=== PATIENT | male | born 1985 | race African-American/Black ===

== ENCOUNTER 2019-03-11 20:12 | Inpatient (IN) ==
[2019-03-11] MEDS ORDERED: MORPHINE 4 MG/1 ML VIAL ONE (20:23)
[2019-03-11] MEDS ORDERED: ONDANSETRON 4 MG/2 ML VIAL ONE (20:23)
[2019-03-11] MEDS ORDERED: DIPH/TET/ACEL PERT BOOSTER VACCINE 0.5 ML VIAL IM ONE (20:24)
[2019-03-11] MEDS ORDERED: ONDANSETRON 4 MG/2 ML VIAL IV STA (20:28)
[2019-03-11] MEDS ORDERED: DIPHTHERIA/TETANUS ADULT VACCINE 0.5 ML SYRINGE IM ONE (20:28)
[2019-03-11] MEDS ORDERED: LACTATED RINGERS 1,000 ML IV STA (20:28)
[2019-03-11] MEDS ORDERED: MORPHINE 4 MG/1 ML VIAL IV STA (20:28)
[2019-03-11 20:39] LABS: Basophils % 0.2 % (0.0-0.8); Eosinophils # 0.1 10*3/uL (0.0-0.87); Eosinophils % 1.1 % (0.00-10.9); Hematocrit 46.8 VOL% (42.0-52.0); Hemoglobin 15.2 GM/DL (14.0-18.0); Lymphocytes # 3.1 10*3/uL (1.4-4.0); Lymphocytes % 57.4 % (21.2-54.2); Mean Corpuscular HGB Conc 32.5 GM/DL (32-36); Mean Corpuscular Volume 92.1 FL (87-102); Mean Platelet Volume 10.8 FL (9.6-12.0); Monocytes % 7.1 % (1.7-12.7); Neutrophils % 34.2 % (38.7-73.9); Platelet Count 171 T/CUMM (130-400); Red Blood Count 5.08 MC/CUMM (3.8-5.5); Red Cell Distribution Width 12.3 % (9.3-17.3); White Blood Count 5.4 T/CUMM (4-12)
[2019-03-11] MEDS ORDERED: propofoL 200 MG/20 ML VIAL IV STA (20:40)
[2019-03-11 20:48] LABS: PT Patient Result 10.6 SECS (9.6-12.2); Partial Thromboplastin Time 22.7 SECS (20.8-36.0)
[2019-03-11 20:59] LABS: Alanine Aminotransferase 16 U/L (16-61); Albumin 3.7 G/DL (3.4-5.0); Alkaline Phosphatase 81 U/L (45-117); Amylase 47 U/L (25-115); Aspartate Amino Transferase 15 U/L (0-37); Blood Urea Nitrogen 9 MG/DL (7-18); Calcium 8.6 MG/DL (8.5-10.1); Estimated Glom Filtration Rate 120 ML/MIN; Glucose 120 MG/DL (74-106); Osmolality,Calculated 282.1 MOS/KG (273-304); Total Protein 6.9 G/DL (6.4-8.3)
[2019-03-11 21:01] LABS: Atypical Lymphocytes 1+; Eosinophils 2 % (0-10); Lymphocytes 47 % (20-55); Platelet Estimate Adequate; Segmented Neutrophils 42 % (50-85); Total Cells Counted 100
[2019-03-11] MEDS ORDERED: SODIUM CHLORIDE 0.9% 1,000 ML IV STA (21:25)
[2019-03-11 21:28] LABS: Apearance,Urine CLEAR (Clear); Bilirubin,Urine Negative (Negative); Blood, Urine Negative (Negative); Glucose,Urine (UA) Negative (Negative); Hyaline Casts,Urine 1 /LPF (0-3); Ketones,Urine Negative (Negative); Mucus,Urine Occasional /LPF (Occasional); Nitrite,Urine Negative (Negative); Protein,Urine Negative; RBC,Urine 1 /HPF (0-4); Urine Color Straw (Yellow); Urine Specific Gravity 1.018 (1.001-1.035); Urine Urobilinogen < 2.0 EU/DL (0.2-1.0); WBC,Urine 1 /HPF (0-6)
[2019-03-11 21:31] LABS: Barbiturates Screen,Urine Negative (Negative); Benzodiazepines Screen,Urine Positive (Negative); Cannabinoid Screen,Urine Negative (Negative); Opiate Screen,Urine Positive (Negative); Phencyclidine Screen,Urine Negative (Negative)
[2019-03-11 22:04] LABS: Lactic Acid 1.1 MMOL/L (0.4-2.0)
[2019-03-11] MEDS ORDERED: hydrALAZINE 20 MG/1 ML VIAL IV STA (22:12)
[2019-03-11] MEDS ORDERED: hydrALAZINE 20 MG/1 ML VIAL ONE (22:13)
[2019-03-11] MEDS ORDERED: ACETAMINOPHEN 325 MG TABLET PO PRN (23:15)
[2019-03-11] MEDS ORDERED: PROMETHAZINE 25 MG/1 ML VIAL IM PRN (23:15)
[2019-03-11] MEDS ORDERED: ONDANSETRON 4 MG/2 ML VIAL IV PRN (23:15)
[2019-03-11] MEDS: HYDROmorphone 2 MG/1 ML VIAL IV PRN (23:26)
[2019-03-11] MEDS: KETOROLAC 15 MG/1 ML VIAL IV SCH (23:27)
[2019-03-11] MEDS: LACTATED RINGERS 1,000 ML IV SCH (23:27)
[2019-03-12 05:38] LABS: Basophils % 0.2 % (0.0-0.8); Eosinophils % 0.5 % (0.00-10.9); Hematocrit 42.4 VOL% (42.0-52.0); Immature Granulocytes % 0.2 %; Immature Granulocytes Absolute 0.02 #; Lymphocytes # 1.9 10*3/uL (1.4-4.0); Lymphocytes % 24.1 % (21.2-54.2); Mean Corpuscular Volume 92.2 FL (87-102); Mean Platelet Volume 10.5 FL (9.6-12.0); Monocytes % 6.9 % (1.7-12.7); Neutrophils % 68.1 % (38.7-73.9); Platelet Count 158 T/CUMM (130-400); Red Cell Distribution Width 12.5 % (9.3-17.3)
[2019-03-12] MEDS: KETOROLAC 15 MG/1 ML VIAL IV SCH ×3 (05:57→16:48)
[2019-03-12 06:03] LABS: Calcium 8.2 MG/DL (8.5-10.1); Osmolality,Calculated 284.8 MOS/KG (273-304)
[2019-03-12] MEDS: ENOXAPARIN 40 MG/0.4 ML SYRINGE SUBCUT SCH (09:01)
[2019-03-12] MEDS: PANTOPRAZOLE 40 MG TABLET PO SCH (09:01)
[2019-03-12] MEDS: LACTATED RINGERS 1,000 ML IV SCH (09:12)
[2019-03-13] MEDS: KETOROLAC 15 MG/1 ML VIAL IV SCH ×5 (00:06→23:14)
[2019-03-13] MEDS: ENOXAPARIN 40 MG/0.4 ML SYRINGE SUBCUT SCH (09:02)
[2019-03-13] MEDS: PANTOPRAZOLE 40 MG TABLET PO SCH (09:02)
[2019-03-14] MEDS: KETOROLAC 15 MG/1 ML VIAL IV SCH ×4 (05:46→23:26)
[2019-03-14] MEDS: ENOXAPARIN 40 MG/0.4 ML SYRINGE SUBCUT SCH (09:11)
[2019-03-14] MEDS: PANTOPRAZOLE 40 MG TABLET PO SCH (09:12)
[2019-03-14] MEDS: amLODIPine 10 MG TABLET PO SCH (10:08)
[2019-03-15] MEDS: KETOROLAC 15 MG/1 ML VIAL IV SCH ×5 (04:31→23:08)
[2019-03-15] MEDS: ENOXAPARIN 40 MG/0.4 ML SYRINGE SUBCUT SCH (09:04)
[2019-03-15] MEDS: amLODIPine 10 MG TABLET PO SCH (09:05)
[2019-03-15] MEDS: PANTOPRAZOLE 40 MG TABLET PO SCH (09:05)
[2019-03-16] MEDS: KETOROLAC 15 MG/1 ML VIAL IV SCH ×3 (06:01→17:35)
[2019-03-16] MEDS: ENOXAPARIN 40 MG/0.4 ML SYRINGE SUBCUT SCH (09:27)
[2019-03-16] MEDS: amLODIPine 10 MG TABLET PO SCH (09:27)
[2019-03-16] MEDS: PANTOPRAZOLE 40 MG TABLET PO SCH (09:27)
[2019-03-17] MEDS: HYDROmorphone 2 MG/1 ML VIAL IV PRN ×2 (02:16→07:30)
[2019-03-17] MEDS ORDERED: hydroCHLOROthiazide 25 MG TABLET PO PRN (08:45)
[2019-03-17] MEDS: PANTOPRAZOLE 40 MG TABLET PO SCH (08:56)
[2019-03-17] MEDS: amLODIPine 10 MG TABLET PO SCH (08:56)
[2019-03-17] MEDS: ENOXAPARIN 40 MG/0.4 ML SYRINGE SUBCUT SCH (08:56)
[2019-03-17 15:53] VITALS: BP 141/89
== END 2019-03-17 17:28 | disposition home or self-care (01) | DRG 199 ==
LOC: N.ED 20:12 → N.EDINP 21:20 → N.5E 22:07 → N.3E 03-13 10:11
PROVIDERS: ADMIT Surgery; ATTEND Surgery